=== PATIENT | male | born 1960 | race Caucasian/White ===

== ENCOUNTER 2016-05-04 02:57 | Inpatient (IN) | payer MEDICARE, OTHER ==
[2016-05-04] MEDS ORDERED: NS 0.9% 1000 ML* 1,000 ML IV ONE ×2 (03:24→04:10)
[2016-05-04] MEDS ORDERED: Ondansetron INJ* 2 MG/ML VIAL ONE (03:46)
[2016-05-04] MEDS ORDERED: Ondansetron INJ* 2 MG/ML VIAL IV ONE (03:47)
[2016-05-04 03:55] LABS: Hematocrit 46 % (42-52); Hemoglobin 15.4 g/dl (14.0-18.0); Mean Corpuscular HGB Conc 34 g/dl (31-36); Mean Corpuscular Hemoglobin 32 pg (27-31); Mean Corpuscular Volume 96 fL (80-94); Mean Platelet Volume 8 um3 (7.4-10.4); Red Blood Count 4.77 10^6/ul (4.0-5.4); Red Cell Distribution Width 14 % (10.5-15); White Blood Count 13.6 10^3/ul (3.5-10.8)
[2016-05-04 03:58] LABS: Add Diff/Slide Review? Slide Review Added; Comments Flag Yes
[2016-05-04 04:04] LABS: ALT 31 U/L (7-52); AST 39 U/L (13-39); Albumin 3.8 g/dL (3.2-5.2); Alkaline Phosphatase 87 U/L (34-104); Anion Gap 9 mmol/L (2-11); BUN/Creatinine Ratio 10.9 (8-20); Blood Urea Nitrogen 14 mg/dL (6-24); CO2 Carbon Dioxide 25 mmol/L (22-32); Chloride 101 mmol/L (101-111); EGFR African American 74.1 (>60); EGFR Non-African American 57.6 (>60); Glucose 260 mg/dL (70-100); Sodium 135 mmol/L (133-145); Total Protein 6.8 g/dL (6.4-8.9)
[2016-05-04 04:08] LABS: Troponin I 0.05 ng/mL (<0.04)
[2016-05-04] MEDS ORDERED: Piperac/Tazob 3.375 gm in NS* 3.375 GM/100 ML BAG IVPB ONE (04:11)
--- NOTE | 2016-05-04 04:18 | ED ---
Dena Retana Salem, scribed for Veronique Morales MD on 05/04/16 at 0329 . Substance Abuse/Use - HPI Summary HPI Summary: Patient is a 55 y/o male who presents to the ED s/p a heroin overdose. Pt was brought in after he was found unresponsive and with agonal breathing by the police. Cotton balls used to filter heroin was found on him. 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 Pt lives alone and is a smoker. - History Of Current Complaint Chief Complaint: EDOverdose Stated Complaint: OVERDOSE Hx Obtained From: Patient, EMS Severity Initially: Moderate Severity Currently: Moderate Character: Other - Moaning. Aggravating Factor(s): Nothing Alleviating Factor(s): Medication - Narcan. Associated Signs And Symptoms: Shortness Of Breath - Agonal breathing. - Allergies/Home Medications Allergies/Adverse Reactions: Allergies Allergy/AdvReac Type Severity Reaction Status Date / Time Codeine Allergy Unknown Vomiting Verified 12/09/15 10:12 PMH/Surg Hx/FS Hx/Imm Hx Endocrine/Hematology History: Denies: Hx Diabetes Cardiovascular History: Denies: Hx Hypertension, Hx Peripheral Vascular Disease Respiratory History: Reports: Hx Chronic Obstructive Pulmonary Disease (COPD) - ON O2 24/7, Other Respiratory Problems/Disorders - pneumothorax Denies: Hx Asthma, Hx Sleep Apnea History: Denies: Hx Renal Disease Musculoskeletal History: Reports: Hx Arthritis - BACK, Hx Back Problems Denies: Hx Osteoporosis Sensory History: Reports: Hx Contacts or Glasses Denies: Hx Cataracts, Hx Hearing Aid Opthamlomology History: Reports: Hx Contacts or Glasses Denies: Hx Cataracts Psychiatric History: Denies: Hx Depression - Surgical History Surgery Procedure, Year, and Place: R THORACOTOMY 2009. NECK SURGERY 1999. STEEL PLATE RIGHT HAND. VARICOSE VEINS R LEG. HERNIA REPAIR IN CHILDHOOD. TONSILECTOMY. APPENDECTOMY Hx Anesthesia Reactions: No Infectious Disease History: No Infectious Disease History: Reports: Hx Hepatitis - Hep C Denies: Traveled Outside the [place] in Last 30 Days - Family History Known Family History: Positive: Cardiac Disease - Brother [place], Diabetes - Brother Negative: Hypertension - Social History Lives: Alone Alcohol Use: None Substance Use Type: Reports: Heroin, Marijuana Substance Use Comment - Amount & Last Used: DAILY Hx Tobacco Use: Yes Smoking Status (MU): Current Every Day Smoker Amount Used/How Often: 1/2 PACK PER DAY Review of Systems Negative: Fever Positive: Other - Moaning. Positive: Shortness Of Breath - Agonal breathing. All Other Systems Reviewed And Are Negative: Yes Physical Exam Triage Information Reviewed: Yes Vital Signs On Initial Exam: Initial Vitals Temp Pulse Resp BP Pulse Ox 99.0 F 136 20 125/87 91 05/04/16 02:59 05/04/16 02:59 05/04/16 02:59 05/04/16 02:59 05/04/16 02:59 Vital Signs Reviewed: Yes Appearance: Positive: No Pain Distress Skin: Positive: Warm, Skin Color Reflects Adequate Perfusion, Dry Head/Face: Positive: Other - 1cm abrasion on forehead. Eyes: Positive: Other: - Pinpoint puplis. ENT: Positive: Pharynx normal, TMs normal Neck: Positive: Supple, Nontender Respiratory/Lung Sounds: Positive: Clear to Auscultation, Breath Sounds Present. Negative: Rales, Rhonchi, Wheezes Cardiovascular: Positive: Tachycardia. Negative: Murmur, Rub Abdomen Description: Positive: Nontender, Soft. Negative: Distended, Guarding Bowel Sounds: Positive: Present Musculoskeletal: Positive: Strength/ROM Intact. Negative: Edema Left, Edema Right Neurological: Positive: Sensory/Motor Intact, Alert, Oriented to Person Place, Time, CN Intact II-III Psychiatric: Positive: Affect/Mood Appropriate Diagnostics - Vital Signs Vital Signs Temp Pulse Resp BP Pulse Ox 05/04/16 02:59 99.0 F 136 20 125/87 91 - Laboratory Lab Results: Lab Results 05/04/16 05/04/16 05/04/16 Range/Units 03:30 03:30 03:30 WBC 13.6 H (3.5-10.8) 10^3/ul RBC 4.77 (4.0-5.4) 10^6/ul Hgb 15.4 (14.0-18.0) g/dl Hct 46 (42-52) % MCV 96 H (80-94) fL MCH 32 H (27-31) pg MCHC 34 (31-36) g/dl RDW 14 (10.5-15) % Plt Count 202 (150-450) 10^3/ul MPV 8 (7.4-10.4) um3 Neut % (Auto) 92.9 H (38-83) % Lymph % (Auto) 3.7 L (25-47) % [place] % (Auto) 1.1 (1-9) % Eos % (Auto) 2.2 (0-6) % Baso % (Auto) 0.1 (0-2) % Absolute Neuts (auto) 12.6 H (1.5-7.7) 10^3/ul Absolute Lymphs (auto) 0.5 L (1.0-4.8) 10^3/ul Absolute Monos (auto) 0.2 (0-0.8) 10^3/ul Absolute Eos (auto) 0.3 (0-0.6) 10^3/ul Absolute Basos (auto) 0 (0-0.2) 10^3/ul Absolute Nucleated RBC 0.01 10^3/ul Nucleated RBC % 0 INR (Anticoag Therapy) (0.89-1.11) Sodium 135 (133-145) mmol/L Potassium 4.0 (3.5-5.0) mmol/L Chloride 101 (101-111) mmol/L Carbon Dioxide 25 (22-32) mmol/L Anion Gap 9 (2-11) mmol/L BUN 14 (6-24) mg/dL Creatinine 1.29 H (0.67-1.17) mg/dL Est GFR ( Amer) 74.1 (>60) Est GFR (Non-Af Amer) 57.6 (>60) BUN/Creatinine Ratio 10.9 (8-20) Glucose 260 H (70-100) mg/dL Lactic Acid (0.5-2.0) mmol/L Calcium 9.0 (8.6-10.3) mg/dL Total Bilirubin 0.20 (0.2-1.0) mg/dL AST 39 (13-39) U/L ALT 31 (7-52) U/L Alkaline Phosphatase 87 (34-104) U/L Ammonia 54 H (16-53) mol/L Troponin I 0.05 H* (<0.04) ng/mL Total Protein 6.8 (6.4-8.9) g/dL Albumin 3.8 (3.2-5.2) g/dL Globulin 3.0 (2-4) g/dL Albumin/Globulin Ratio 1.3 (1-3) Salicylates Pending Acetaminophen Pending Serum Alcohol Pending 05/04/16 05/04/16 Range/Units 03:30 03:30 WBC (3.5-10.8) 10^3/ul RBC (4.0-5.4) 10^6/ul Hgb (14.0-18.0) g/dl Hct (42-52) % MCV (80-94) fL MCH (27-31) pg MCHC (31-36) g/dl RDW (10.5-15) % Plt Count (150-450) 10^3/ul MPV (7.4-10.4) um3 Neut % (Auto) (38-83) % Lymph % (Auto) (25-47) % [place] % (Auto) (1-9) % Eos % (Auto) (0-6) % Baso % (Auto) (0-2) % Absolute Neuts (auto) (1.5-7.7) 10^3/ul Absolute Lymphs (auto) (1.0-4.8) 10^3/ul Absolute Monos (auto) (0-0.8) 10^3/ul Absolute Eos (auto) (0-0.6) 10^3/ul Absolute Basos (auto) (0-0.2) 10^3/ul Absolute Nucleated RBC 10^3/ul Nucleated RBC % INR (Anticoag Therapy) 0.98 (0.89-1.11) Sodium (133-145) mmol/L Potassium (3.5-5.0) mmol/L Chloride (101-111) mmol/L Carbon Dioxide (22-32) mmol/L Anion Gap (2-11) mmol/L BUN (6-24) mg/dL Creatinine (0.67-1.17) mg/dL Est GFR ( Amer) (>60) Est GFR (Non-Af Amer) (>60) BUN/Creatinine Ratio (8-20) Glucose (70-100) mg/dL Lactic Acid 4.4 H* (0.5-2.0) mmol/L Calcium (8.6-10.3) mg/dL Total Bilirubin (0.2-1.0) mg/dL AST (13-39) U/L ALT (7-52) U/L Alkaline Phosphatase (34-104) U/L Ammonia (16-53) mol/L Troponin I (<0.04) ng/mL Total Protein (6.4-8.9) g/dL Albumin (3.2-5.2) g/dL Globulin (2-4) g/dL Albumin/Globulin Ratio (1-3) Salicylates Acetaminophen Serum Alcohol Result Diagrams: 05/04/16 03:30 05/04/16 03:30 Lab Statement: Any lab studies that have been ordered have been reviewed, and results considered in the medical decision making process. - Radiology CXR Radiology Interpretation Completed By: ED Physician - COPD. Chronic lung changes bilaterally. No clear cut infiltrate. - CT BRAIN CT Interpretation Completed By: Radiologist - No acute intracranial hemorrhage mass effect or midline shift. Mild nonspecfic periventricular predominant low density throughout the deep white matter is most likely due to mild small vessel ischemic white matter disease. Calcified areteriosclerosis of the right cavernous carotids noted. Chronic right frontal lobe white matter and cortical small infract and encephalomalacia and chronic bilateral basal ganglia lacunar infracts. If there is a clinical concern for a small acute infract then fellow up evaluation with an MRI of the brain may be needed. - EKG 0302 EKG Interpretation: Rapid A Fib @ 135 bpm. No Q waves. PRWP. EKG Comparison: Other - New A fib morphology compared to EKG on 07/17/13. Course/Dx - Course Course Of Treatment: IV drug user. Found on overdose. Remains tachycardic. Temperature of 99F. Will treat with Vanco and Zosyn. lactic is over 4, [place] to admit - Diagnoses Provider Diagnoses: Sepsis, Heroin overdose - Physician Notifications Discussed Care Of Patient With: Dr. Yap (Hospitalist). - Critical Care Time Critical Care Time: 30-74 min Discharge - Discharge Plan Condition: Stable Disposition: ADMITTED TO [facility] Referrals: No Primary Care Phys,NOPCP [Primary Care Provider] - The documentation as recorded by the Dena vilchis Salem accurately reflects the service I personally performed and the decisions made by me, Veronique Morales MD.
[2016-05-04 04:21] LABS: Acetaminophen < 15 mcg/mL; Alcohol < 10 mg/dL (<10); Salicylate < 2.50 mg/dL (<30)
[2016-05-04] MEDS ORDERED: Albuterol 2.5 MG/3 ML NEB.SOL* (0.083%) INH PRN ×2 (04:32→09:00)
[2016-05-04] MEDS ORDERED: Melatonin (NF) 3 MG TAB PO PRN (04:33)
[2016-05-04] MEDS ORDERED: PROCHLORPERAZINE INJ 5 MG/ML 2 ML VIAL IV PRN (04:33)
[2016-05-04] MEDS ORDERED: traMADol TAB* 50 MG PO PRN (04:33)
[2016-05-04] MEDS ORDERED: Ondansetron INJ* 2 MG/ML VIAL IV PRN (04:33)
[2016-05-04] MEDS ORDERED: Nicotine Inhaler* 10 MG AMP INH PRN (04:33)
[2016-05-04] MEDS ORDERED: Aspirin Low Dose CHEW TAB* 81 MG PO ONE (04:33)
--- NOTE | 2016-05-04 04:35 | HP ---
H&P (Free Text) History and Physical: PCP: none Date/Time of Evaluation: 05/05/2016 0430 CC: narcotic overdose HPI: Mr Villela is a 55YO male HX emphysema, spontaneous pneumothorax, polysubstance abuse who presents via EMS after police found him sitting in his car at a stop light in [place] unresponsive and breathing agonally. 2mg intranasal naloxone was administered w/o effect. 2mg IV naloxone was then given in the field with prompt arousal and agitation. He is not forthcoming with information, responding only to pointed questioning. He admits to snorting heroin prior to driving. He denies chest pain, SOB, palpitations, N/V, F/C/D, light-headedness, focal W/N/T, change in speech/swallow/vision, or other issues. Evaluation reveals tachycardia in the 100-130s & saO2 in the low 90s. Labs have WBCs of 13k 92% neutrophils, BUN/cre 14/1.29 (baseline 14/0.7), lactic acid of 4.4, & troponin of 0.05. ECG sinus tachycardia rate 135, no ischemia. CXR shows stigmata of COPD & bibasilar favor atelectasis vs less likely infiltrates. PMedHx hepatitis C, reportedly in remission s/p TX chronic LBP COPD spontaneous L pneumothorax Allergies Codeine Allergy (Unknown, Verified 12/09/15 10:12) Vomiting Medications Nursing to reconcile. PSurgHx R thoracotomy for bullous disease L chest tube for spontaneous pneumothorax SocHx: 1PPD cigarettes, denies alcohol, occasional heroin, occasional marijuana , HX IV drug abuse; on disability, formerly worked construction; full code status FamHx: Mother alive at age 87, uncertain of her issues. Brother passed of complication of diabetes. ROS: as above, otherwise reviewed and all were negative Constitutional: NAD, normally developed, malnourished unkempt white male vitals: Vital Signs Temp 37.2 C 05/04/16 02:59 Pulse 108 05/04/16 04:00 Resp 15 05/04/16 04:00 BP 116/76 05/04/16 04:00 Pulse Ox 93 05/04/16 04:00 Intake & Output 05/03/16 05/03/16 05/04/16 11:59 23:59 11:59 Weight 63.503 kg HEENM: atraumatic; sclera/conjunctiva: non-icteric/clear; hearing: clinically intact; oropharynx: clear, mucosa tacky Neck: soft tissue: non-tender; thyroid: normal Pulmonary: clear to auscultation bilaterally, good aeration, no accessory muscle use CV: RR/RR, normal S1S2, no carotid bruit, no jugular venous distention, 2+ B DP/ PT, no edema Abdominal: soft, non-distended, non-tender, no rebound/guarding/rigidity, normoactive bowel sounds, no hepatosplenomegaly or masses, no costovertebral angle tenderness Musculoskeletal: general: grossly intact; gait: stable Integumental: normal appearance and texture Psychiatric orientation: AA&O to PPTS affect: flat mood: calm eye contact: good content: reliable when he answers responses: evasive insight: poor Testing: Lab Results 05/04/16 05/04/16 05/04/16 Range/Units 03:30 03:30 03:30 WBC 13.6 H (3.5-10.8) 10^3/ul RBC 4.77 (4.0-5.4) 10^6/ul Hgb 15.4 (14.0-18.0) g/dl Hct 46 (42-52) % MCV 96 H (80-94) fL MCH 32 H (27-31) pg MCHC 34 (31-36) g/dl RDW 14 (10.5-15) % Plt Count 202 (150-450) 10^3/ul MPV 8 (7.4-10.4) um3 Neut % (Auto) 92.9 H (38-83) % Lymph % (Auto) 3.7 L (25-47) % [place] % (Auto) 1.1 (1-9) % Eos % (Auto) 2.2 (0-6) % Baso % (Auto) 0.1 (0-2) % Absolute Neuts (auto) 12.6 H (1.5-7.7) 10^3/ul Absolute Lymphs (auto) 0.5 L (1.0-4.8) 10^3/ul Absolute Monos (auto) 0.2 (0-0.8) 10^3/ul Absolute Eos (auto) 0.3 (0-0.6) 10^3/ul Absolute Basos (auto) 0 (0-0.2) 10^3/ul Absolute Nucleated RBC 0.01 10^3/ul Nucleated RBC % 0 INR (Anticoag Therapy) (0.89-1.11) Carbon Monoxide Screen (<3.5) % Sodium 135 (133-145) mmol/L Potassium 4.0 (3.5-5.0) mmol/L Chloride 101 (101-111) mmol/L Carbon Dioxide 25 (22-32) mmol/L Anion Gap 9 (2-11) mmol/L BUN 14 (6-24) mg/dL Creatinine 1.29 H (0.67-1.17) mg/dL Est GFR ( Amer) 74.1 (>60) Est GFR (Non-Af Amer) 57.6 (>60) BUN/Creatinine Ratio 10.9 (8-20) Glucose 260 H (70-100) mg/dL Lactic Acid (0.5-2.0) mmol/L Calcium 9.0 (8.6-10.3) mg/dL Total Bilirubin 0.20 (0.2-1.0) mg/dL AST 39 (13-39) U/L ALT 31 (7-52) U/L Alkaline Phosphatase 87 (34-104) U/L Ammonia 54 H (16-53) mol/L Troponin I 0.05 H* (<0.04) ng/mL Total Protein 6.8 (6.4-8.9) g/dL Albumin 3.8 (3.2-5.2) g/dL Globulin 3.0 (2-4) g/dL Albumin/Globulin Ratio 1.3 (1-3) TSH 5.57 (0.34-5.60) mcIU/mL Urine Color Urine Appearance Urine pH (5-9) Ur Specific [place] (1.010-1.030) Urine Protein (Negative) Urine Ketones (Negative) Urine Blood (Negative) Urine Nitrate (Negative) Urine Bilirubin (Negative) Urine Urobilinogen (Negative) Ur Leukocyte Esterase (Negative) Urine WBC (Auto) (Absent) Urine RBC (Auto) (Absent) Urine Bacteria (Absent) Urine Glucose (Negative) Salicylates < 2.50 (<30) mg/dL Urine Opiates Screen (None Detect) Acetaminophen < 15 mcg/mL Ur Barbiturates Screen (None Detect) Ur Phencyclidine Scrn (None Detect) Ur Amphetamines Screen (None Detect) U Benzodiazepines Scrn (None Detect) Urine Cocaine Screen (None Detect) U Cannabinoids Screen (None Detect) Serum Alcohol < 10 (<10) mg/dL 05/04/16 05/04/16 05/04/16 Range/Units 03:30 03:30 05:15 WBC (3.5-10.8) 10^3/ul RBC (4.0-5.4) 10^6/ul Hgb (14.0-18.0) g/dl Hct (42-52) % MCV (80-94) fL MCH (27-31) pg MCHC (31-36) g/dl RDW (10.5-15) % Plt Count (150-450) 10^3/ul MPV (7.4-10.4) um3 Neut % (Auto) (38-83) % Lymph % (Auto) (25-47) % [place] % (Auto) (1-9) % Eos % (Auto) (0-6) % Baso % (Auto) (0-2) % Absolute Neuts (auto) (1.5-7.7) 10^3/ul Absolute Lymphs (auto) (1.0-4.8) 10^3/ul Absolute Monos (auto) (0-0.8) 10^3/ul Absolute Eos (auto) (0-0.6) 10^3/ul Absolute Basos (auto) (0-0.2) 10^3/ul Absolute Nucleated RBC 10^3/ul Nucleated RBC % INR (Anticoag Therapy) 0.98 (0.89-1.11) Carbon Monoxide Screen (<3.5) % Sodium (133-145) mmol/L Potassium (3.5-5.0) mmol/L Chloride (101-111) mmol/L Carbon Dioxide (22-32) mmol/L Anion Gap (2-11) mmol/L BUN (6-24) mg/dL Creatinine (0.67-1.17) mg/dL Est GFR ( Amer) (>60) Est GFR (Non-Af Amer) (>60) BUN/Creatinine Ratio (8-20) Glucose (70-100) mg/dL Lactic Acid 4.4 H* (0.5-2.0) mmol/L Calcium (8.6-10.3) mg/dL Total Bilirubin (0.2-1.0) mg/dL AST (13-39) U/L ALT (7-52) U/L Alkaline Phosphatase (34-104) U/L Ammonia (16-53) mol/L Troponin I (<0.04) ng/mL Total Protein (6.4-8.9) g/dL Albumin (3.2-5.2) g/dL Globulin (2-4) g/dL Albumin/Globulin Ratio (1-3) TSH (0.34-5.60) mcIU/mL Urine Color Yellow Urine Appearance Cloudy Urine pH 6.0 (5-9) Ur Specific [place] 1.007 L (1.010-1.030) Urine Protein 2+(100 mg/dl) H (Negative) Urine Ketones Negative (Negative) Urine Blood 1+ H (Negative) Urine Nitrate Negative (Negative) Urine Bilirubin Negative (Negative) Urine Urobilinogen Negative (Negative) Ur Leukocyte Esterase Negative (Negative) Urine WBC (Auto) 1+(6-10/hpf) H (Absent) Urine RBC (Auto) 2+(6-10/hpf) H (Absent) Urine Bacteria Absent (Absent) Urine Glucose 3+(>=500 mg/dl) H (Negative) Salicylates (<30) mg/dL Urine Opiates Screen (None Detect) Acetaminophen mcg/mL Ur Barbiturates Screen (None Detect) Ur Phencyclidine Scrn (None Detect) Ur Amphetamines Screen (None Detect) U Benzodiazepines Scrn (None Detect) Urine Cocaine Screen (None Detect) U Cannabinoids Screen (None Detect) Serum Alcohol (<10) mg/dL 05/04/16 05/04/16 Range/Units 05:15 05:15 WBC (3.5-10.8) 10^3/ul RBC (4.0-5.4) 10^6/ul Hgb (14.0-18.0) g/dl Hct (42-52) % MCV (80-94) fL MCH (27-31) pg MCHC (31-36) g/dl RDW (10.5-15) % Plt Count (150-450) 10^3/ul MPV (7.4-10.4) um3 Neut % (Auto) (38-83) % Lymph % (Auto) (25-47) % [place] % (Auto) (1-9) % Eos % (Auto) (0-6) % Baso % (Auto) (0-2) % Absolute Neuts (auto) (1.5-7.7) 10^3/ul Absolute Lymphs (auto) (1.0-4.8) 10^3/ul Absolute Monos (auto) (0-0.8) 10^3/ul Absolute Eos (auto) (0-0.6) 10^3/ul Absolute Basos (auto) (0-0.2) 10^3/ul Absolute Nucleated RBC 10^3/ul Nucleated RBC % INR (Anticoag Therapy) (0.89-1.11) Carbon Monoxide Screen 8.8 H (<3.5) % Sodium (133-145) mmol/L Potassium (3.5-5.0) mmol/L Chloride (101-111) mmol/L Carbon Dioxide (22-32) mmol/L Anion Gap (2-11) mmol/L BUN (6-24) mg/dL Creatinine (0.67-1.17) mg/dL Est GFR ( Amer) (>60) Est GFR (Non-Af Amer) (>60) BUN/Creatinine Ratio (8-20) Glucose (70-100) mg/dL Lactic Acid (0.5-2.0) mmol/L Calcium (8.6-10.3) mg/dL Total Bilirubin (0.2-1.0) mg/dL AST (13-39) U/L ALT (7-52) U/L Alkaline Phosphatase (34-104) U/L Ammonia (16-53) mol/L Troponin I (<0.04) ng/mL Total Protein (6.4-8.9) g/dL Albumin (3.2-5.2) g/dL Globulin (2-4) g/dL Albumin/Globulin Ratio (1-3) TSH (0.34-5.60) mcIU/mL Urine Color Urine Appearance Urine pH (5-9) Ur Specific [place] (1.010-1.030) Urine Protein (Negative) Urine Ketones (Negative) Urine Blood (Negative) Urine Nitrate (Negative) Urine Bilirubin (Negative) Urine Urobilinogen (Negative) Ur Leukocyte Esterase (Negative) Urine WBC (Auto) (Absent) Urine RBC (Auto) (Absent) Urine Bacteria (Absent) Urine Glucose (Negative) Salicylates (<30) mg/dL Urine Opiates Screen Presumptive positive H (None Detect) Acetaminophen mcg/mL Ur Barbiturates Screen None detected (None Detect) Ur Phencyclidine Scrn None detected (None Detect) Ur Amphetamines Screen None detected (None Detect) U Benzodiazepines Scrn None detected (None Detect) Urine Cocaine Screen Presumptive positive H (None Detect) U Cannabinoids Screen Presumptive positive H (None Detect) Serum Alcohol (<10) mg/dL ECG, personally reviewed: sinus tachycardia rate 135, no ischemia CXR, personally reviewed: stigmata of COPD & bibasilar favor atelectasis vs less likely infiltrates, official read pending CT brain WO, personally reviewed: no acute finding, official read pending Impression: 55M presenting with heroin OD in the process of arresting, elevated troponin, OPHELIA, & SIRS; ? aspiration DIAGNOSIS & PLAN Primary heroin OD : telemetry : PRN naloxone : social secretary consult OPHELIA : suspect 2nd hypoperfusion : IVFs, trend elevated troponin : suspect demand ischemia : telemetry : supplemental oxygen : aspirin : trend SIRS : suspect 2nd near arrest from heroin OD : piperacillin/tazobactam & vancomycin given in ED : hold further ABX unless source identified or infection becomes likely : IVFs, close monitoring : blood CX & check UA Secondary polysubstance abuse : smoking cessation recommended, no motivation : social secretary COPD/emphysema, not in exacerbation : albuterol nebs : mometasone/formoterol : tiotropium : incentive spirometry Admission Rational: observation for heroin OD, elevated troponin, OPHELIA, & SIRS DVTp: heparin SQ Code Status: full
[2016-05-04] MEDS ORDERED: Albuterol/Ipratropium NEB.SOL* Albuterol 2.5 MG/Ipratropium 0.5 MG 3 ML INH ONE (04:38)
[2016-05-04] MEDS ORDERED: Naloxone* 0.4 MG/ML 1 ML VIAL IV PRN (04:41)
[2016-05-04] MEDS ORDERED: Vancomycin(*) 1,000 MG VIAL IVPB SCH (05:00)
[2016-05-04] MEDS ORDERED: Vancomycin(*) 1,000 MG - ED ONCE IVPB ONE ×2 (05:00)
[2016-05-04 05:09] LABS: TSH (Thyroid Stimulating Horm) 5.57 mcIU/mL (0.34-5.60)
[2016-05-04 05:45] LABS: Urine Bacteria Absent (Absent); Urine Bilirubin Negative (Negative); Urine Glucose 3+(>=500 mg/dL) (Negative); Urine Nitrite Negative (Negative)
[2016-05-04 05:53] LABS: Benzodiazepine Urine Screen None Detected (None Detect)
[2016-05-04] MEDS ORDERED: Omeprazole CAP* 20 MG PO SCH (06:00)
[2016-05-04 06:40] LABS: Hematocrit 43 % (42-52); Hemoglobin 14.3 g/dl (14.0-18.0); Mean Corpuscular HGB Conc 34 g/dl (31-36); Mean Corpuscular Hemoglobin 32 pg (27-31); Mean Corpuscular Volume 96 fL (80-94); Mean Platelet Volume 8 um3 (7.4-10.4); Red Blood Count 4.45 10^6/ul (4.0-5.4); Red Cell Distribution Width 14 % (10.5-15); White Blood Count 11.2 10^3/ul (3.5-10.8)
[2016-05-04 06:45] LABS: BUN/Creatinine Ratio 13.3 (8-20); Calcium 7.1 mg/dL (8.6-10.3); EGFR African American 112.3 (>60); EGFR Non-African American 87.3 (>60); Potassium 3.9 mmol/L (3.5-5.0)
[2016-05-04] MEDS ORDERED: Albuterol 2.5 MG/3 ML NEB.SOL* (0.083%) INH SCH (07:00)
[2016-05-04 07:22] LABS: Troponin I 0.14 ng/mL (<0.04)
--- NOTE | 2016-05-04 07:55 | RAD ---
INDICATION: Altered mental status. COMPARISON: Comparison is made with prior chest x-ray studies from July 28, 2013 and November 13, 2015. TECHNIQUE: A portable view of the chest was obtained. FINDINGS: Cardiac and mediastinal contours appear to be within normal limits. There is focal pleural reaction at the left lung apex which is unchanged from the prior exam. There was an air-fluid level in this region on the study from 2013 favoring that this represents scarring. The lungs are underinflated. There are infiltrates at both lung bases. No pleural effusion is seen. IMPRESSION: SMALL BIBASILAR FILTRATES.
--- NOTE | 2016-05-04 08:02 | RAD ---
INDICATION: Altered mental status. COMPARISON: Comparison is made with a prior CT of the brain from December 09, 2015. TECHNIQUE: Contiguous axial sections of the brain were obtained from the skull base to the vertex without contrast. FINDINGS: The ventricles, cisterns and sulci are within normal limits. There is a small focal area of encephalomalacia present in the subcortical white matter in the right frontal lobe which is unchanged most consistent with an old infarct. There are bilateral focal areas of decreased attenuation present within the basal ganglia most consistent with old lacunar infarcts. No other focal abnormality or mass effect is seen. There is no evidence for hemorrhage. No significant focal osseous abnormality is seen. The visualized portion of the paranasal sinuses and mastoid air cells appear clear. IMPRESSION: 1. NO EVIDENCE FOR GROSS ACUTE INFARCT, MASS EFFECT OR HEMORRHAGE. IF THERE IS CLINICAL CONCERN FOR AN ACUTE INFARCT CONSIDER A FOLLOW-UP MRI OF THE BRAIN WITHOUT CONTRAST. 2. 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
[2016-05-04] MEDS: Mometasone/Formoter 200/5 MDI INH SCH (08:35)
[2016-05-04] MEDS: Acetaminophen TAB* 325 MG PO PRN ×2 (08:47→17:57)
[2016-05-04] MEDS: NS 0.9% 1000 ML* 1,000 ML IV SCH ×2 (08:47→16:45)
[2016-05-04] MEDS ORDERED: Tiotropium CAP.INH* CAP.INH/18 MCG (USE ORDER SET !) INH SCH (09:00)
[2016-05-04] MEDS ORDERED: Docusate CAP* 100 MG PO SCH (09:00)
[2016-05-04] MEDS ORDERED: Spiriva Inhaler DEVICE* 1 EACH DEVICE INH ONE (09:00)
--- NOTE | 2016-05-04 14:51 | PN ---
Subjective Date of Service: 05/04/16 Interval History: Pt is feeling well. He has no complaints at this time. He denies any pain. He states he uses heroin intermittently- he spoke with social work this AM. Objective Active Medications: Acetaminophen (Tylenol Tab*) 650 mg PO Q6H PRN PRN Reason: FEVER/PAIN Last Admin: 05/04/16 08:47 Dose: 650 mg Albuterol (Ventolin 2.5 Mg/3 Ml Neb.Natalie*) 2.5 mg INH Q2H PRN PRN Reason: SOB/WHEEZING Albuterol (Ventolin 2.5 Mg/3 Ml Neb.Natalie*) 2.5 mg INH [id number] AWAKE PRN PRN Reason: TDP Heparin Sodium (Porcine) (Heparin Vial(*)) 5,000 units SUBCUT Q8HR IRINA Sodium Chloride (Ns 0.9% 1000 Ml*) 1,000 mls @ 125 mls/hr IV PER RATE PENDING SALE TO [facility] Last Admin: 05/04/16 08:47 Dose: 125 mls/hr Mometasone Furoate/Formoterol Fumar (Dulera 200/5 Mdi*) 2 puff INH BID PENDING SALE TO [facility] Last Admin: 05/04/16 08:35 Dose: 2 puff Nicotine (Nicotine Inhaler*) 10 mg INH Q2H PRN PRN Reason: CRAVING Ondansetron HCl (Zofran Inj*) 4 mg IV Q6H PRN PRN Reason: NAUSEA Prochlorperazine Edisylate (Compazine Inj*) 10 mg IV Q6H PRN PRN Reason: NAUSEA Tramadol HCl (Ultram*) 50 mg PO Q6H PRN PRN Reason: PAIN Vital Signs 05/04/16 05/04/16 05/04/16 05:00 05:30 06:00 Temperature Pulse Rate 108 95 Respiratory Rate Blood Pressure 123/90 131/90 140/92 (mmHg) O2 Sat by Pulse 92 94 Oximetry 05/04/16 05/04/16 05/04/16 06:30 08:05 08:23 Temperature 98.0 F Pulse Rate 110 82 Respiratory 18 16 Rate Blood Pressure 120/84 141/90 (mmHg) O2 Sat by Pulse 94 95 Oximetry 05/04/16 11:21 Temperature 98.4 F Pulse Rate 89 Respiratory 16 Rate Blood Pressure 112/75 (mmHg) O2 Sat by Pulse 96 Oximetry Oxygen Devices in Use Now: None Appearance: Middle aged male sitting up in bed, NAD Eyes: No Scleral Icterus Ears/Nose/Mouth/Throat: Mucous Membranes Moist Respiratory: Symmetrical Chest Expansion and Respiratory Effort, Clear to Auscultation Cardiovascular: NL Sounds; No Murmurs; No JVD, RRR, No Edema Abdominal: NL Sounds; No Tenderness; No Distention Extremities: No Clubbing, Cyanosis Skin: No Rash or Ulcers, No Nodules or Sclerosis, - - numerous tattoos all over the arms/torso Neurological: Alert and Oriented x 3, - - mild R facial droop (corner of the mouth) no other focal neurologic findings Result Diagrams: 05/04/16 06:10 05/04/16 06:10 Additional Lab and Data: Lab Results 05/04/16 05/04/16 05/04/16 Range/Units 03:30 03:30 03:30 WBC 13.6 H (3.5-10.8) 10^3/ul RBC 4.77 (4.0-5.4) 10^6/ul Hgb 15.4 (14.0-18.0) g/dl Hct 46 (42-52) % MCV 96 H (80-94) fL MCH 32 H (27-31) pg MCHC 34 (31-36) g/dl RDW 14 (10.5-15) % Plt Count 202 (150-450) 10^3/ul MPV 8 (7.4-10.4) um3 Neut % (Auto) 92.9 H (38-83) % Lymph % (Auto) 3.7 L (25-47) % [place] % (Auto) 1.1 (1-9) % Eos % (Auto) 2.2 (0-6) % Baso % (Auto) 0.1 (0-2) % Absolute Neuts (auto) 12.6 H (1.5-7.7) 10^3/ul Absolute Lymphs (auto) 0.5 L (1.0-4.8) 10^3/ul Absolute Monos (auto) 0.2 (0-0.8) 10^3/ul Absolute Eos (auto) 0.3 (0-0.6) 10^3/ul Absolute Basos (auto) 0 (0-0.2) 10^3/ul Absolute Nucleated RBC 0.01 10^3/ul Nucleated RBC % 0 INR (Anticoag Therapy) (0.89-1.11) Sodium 135 (133-145) mmol/L Potassium 4.0 (3.5-5.0) mmol/L Chloride 101 (101-111) mmol/L Carbon Dioxide 25 (22-32) mmol/L Anion Gap 9 (2-11) mmol/L BUN 14 (6-24) mg/dL Creatinine 1.29 H (0.67-1.17) mg/dL Est GFR ( Amer) 74.1 (>60) Est GFR (Non-Af Amer) 57.6 (>60) BUN/Creatinine Ratio 10.9 (8-20) Glucose 260 H (70-100) mg/dL Lactic Acid (0.5-2.0) mmol/L Calcium 9.0 (8.6-10.3) mg/dL Total Bilirubin 0.20 (0.2-1.0) mg/dL AST 39 (13-39) U/L ALT 31 (7-52) U/L Alkaline Phosphatase 87 (34-104) U/L Ammonia 54 H (16-53) mol/L Troponin I 0.05 H* (<0.04) ng/mL Total Protein 6.8 (6.4-8.9) g/dL Albumin 3.8 (3.2-5.2) g/dL Globulin 3.0 (2-4) g/dL Albumin/Globulin Ratio 1.3 (1-3) Salicylates Pending Acetaminophen Pending Serum Alcohol Pending 05/04/16 05/04/16 Range/Units 03:30 03:30 WBC (3.5-10.8) 10^3/ul RBC (4.0-5.4) 10^6/ul Hgb (14.0-18.0) g/dl Hct (42-52) % MCV (80-94) fL MCH (27-31) pg MCHC (31-36) g/dl RDW (10.5-15) % Plt Count (150-450) 10^3/ul MPV (7.4-10.4) um3 Neut % (Auto) (38-83) % Lymph % (Auto) (25-47) % [place] % (Auto) (1-9) % Eos % (Auto) (0-6) % Baso % (Auto) (0-2) % Absolute Neuts (auto) (1.5-7.7) 10^3/ul Absolute Lymphs (auto) (1.0-4.8) 10^3/ul Absolute Monos (auto) (0-0.8) 10^3/ul Absolute Eos (auto) (0-0.6) 10^3/ul Absolute Basos (auto) (0-0.2) 10^3/ul Absolute Nucleated RBC 10^3/ul Nucleated RBC % INR (Anticoag Therapy) 0.98 (0.89-1.11) Sodium (133-145) mmol/L Potassium (3.5-5.0) mmol/L Chloride (101-111) mmol/L Carbon Dioxide (22-32) mmol/L Anion Gap (2-11) mmol/L BUN (6-24) mg/dL Creatinine (0.67-1.17) mg/dL Est GFR ( Amer) (>60) Est GFR (Non-Af Amer) (>60) BUN/Creatinine Ratio (8-20) Glucose (70-100) mg/dL Lactic Acid 4.4 H* (0.5-2.0) mmol/L Calcium (8.6-10.3) mg/dL Total Bilirubin (0.2-1.0) mg/dL AST (13-39) U/L ALT (7-52) U/L Alkaline Phosphatase (34-104) U/L Ammonia (16-53) mol/L Troponin I (<0.04) ng/mL Total Protein (6.4-8.9) g/dL Albumin (3.2-5.2) g/dL Globulin (2-4) g/dL Albumin/Globulin Ratio (1-3) Salicylates Acetaminophen Serum Alcohol Microbiology and Other Data: Microbiology 05/04/16 05:15 Nasal Screen MRSA (PCR)(FRANK) - Final Nasal Mrsa Negative Assess/Plan/Problems-Billing Mr Villela is a 55 yo M who has a 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 - Patient Problems (1) Accidental heroin overdose Current Visit: Yes Status: Acute Code(s): T40.1X1A - POISONING BY HEROIN, ACCIDENTAL (UNINTENTIONAL), INIT ENCNTR SNOMED Code(s): 865987020 Comment: The patient responded to narcan and his mental status is baseline. (2) Polysubstance abuse Current Visit: Yes Status: Acute Code(s): F19.10 - OTHER PSYCHOACTIVE SUBSTANCE ABUSE, UNCOMPLICATED SNOMED Code(s): 046042745 Comment: The patient has met with social work and been given information on community resources. (3) Elevated troponin Current Visit: Yes Status: Acute Code(s): R74.8 - ABNORMAL LEVELS OF OTHER SERUM ENZYMES SNOMED Code(s): 906753237 Comment: ? demand ischemia vs elevated trop secondary to cocaine (drug screen positive). Will get follow up troponin now and echo. (4) COPD (chronic obstructive pulmonary disease) Current Visit: Yes Status: Acute Code(s): J44.9 - CHRONIC OBSTRUCTIVE PULMONARY DISEASE, UNSPECIFIED SNOMED Code(s): 35204018 Comment: No signs of exacerbation at this time. (5) DVT prophylaxis Current Visit: Yes Status: Acute Code(s): HAJ9596 - SNOMED Code(s): 818820011 Comment: SQ heparin (6) Full code status Current Visit: Yes Status: Acute Code(s): Z78.9 - OTHER SPECIFIED HEALTH STATUS SNOMED Code(s): 704822858
--- NOTE | 2016-05-04 16:16 | ECHO ---
Patient: ARI MENSAH [facility] Rec#: [id number] : 1960 Date: 05/04/2016 Age: 55y Height: 190 cm / 74.8 in Weight: 70 kg / 154.3 lbs Sex: M BSA: 1.96 Room#: [facility] Admit Date#: 05/04/2016 Type: Inpatient Referring: Coir Gaffney DO Reading: Wyatt Mckinley MD Personal Property Appraiser: Jordy Odonnell RDCS Transthoracic Echocardiogram Indication: Elevated troponon BP: 112/75 HR: 91 Rhythm: NSR Findings Technical Comments: The study quality is fair. Completed 1600 The study is technically limited due to patient body habitus. The study is technically limited due to the patient's history of COPD. Left Ventricle: The left ventricular chamber size is normal. Mild concentric left ventricular hypertrophy is observed. Global left ventricular wall motion and contractility are within normal limits. There is normal left ventricular systolic function. The estimated ejection fraction is 55-60%. Abnormal left ventricular diastolic filling is observed, consistent with impaired relaxation. Left Atrium: The left atrial chamber size is normal. Right Ventricle: The right ventricular cavity size is normal. The right ventricular global systolic function is normal. Right Atrium: The right atrial cavity size is normal. Aortic Valve: The aortic valve structure is not well visualized. There is no evidence of aortic regurgitation. There is no evidence of aortic stenosis. Mitral Valve: The mitral valve leaflets appear normal. There is no evidence of mitral regurgitation. Tricuspid Valve: There is a physiologic tricuspid regurgitation. Unable to estimate the right ventricular systolic pressure. Pulmonic Valve: The pulmonic valve structure is not well visualized. There is no evidence of pulmonic regurgitation. There is no pulmonic stenosis. Pericardium: There is no pericardial effusion. Aorta: There is no dilatation of the ascending aorta. The aortic arch is not well visualized. There is mild dilatation of the aortic root. Pulmonary Artery: The main pulmonary artery is not well visualized. Venous: The inferior vena cava is dilated. There is an approximate 50% respiratory change in the inferior vena cava dimension. Conclusions There is normal left ventricular systolic function. The estimated ejection fraction is 55-60%. Global left ventricular wall motion and contractility are within normal limits. The left ventricular chamber size is normal. Mild concentric left ventricular hypertrophy is observed. Abnormal left ventricular diastolic filling is observed, consistent with impaired relaxation. Normal cardiac chamber sizes. Functionally benign heart valves. There is mild dilatation of the aortic root. There is no prior echocardiogram available to compare with at this time. Measurements Name Value Normal Range RVIDd (AP) 2D 2.5 cm (0.9 - 2.6) RVDdMajor (2D) 2.7 cm (2.2 - 4.4) RAd ISD 4CH 4.4 cm (3.4 - 4.9) RA (A4C)W 3.7 cm (2.9 - 4.6) IVSd (2D) 1.2 cm (0.6 - 1) LVPWd (2D) 0.8 cm (0.6 - 1) LVIDd (2D) 3.7 cm (3.6 - 5.4) LVIDs (2D) 2.7 cm - LV FS (2D) 27 % (25 - 45) Aortic Annulus 1.8 cm (1.4 - 2.6) Ao root diameter (2D) 3.9 cm (2.1 - 3.5) Ascending Ao 3.2 cm (2.1 - 3.4) LA dimension (AP) 2D 2.8 cm (2.3 - 3.8) LAd ISD 4CH 4.4 cm (2.9 - 5.3) LA ISD 4CH W 3.4 cm (2.5 - 4.5) Name Value Normal Range LA ESV SP 4CH (A/L) 28 ml - LA ESV SP 2CH (A/L) 33 ml - LA ESV BP (A/L) 30 ml - LA ESV BP (A/L) index 15.49 ml/m2 - LA ESV SP 4CH (MOD) 25 ml - LA ESV SP 2CH (MOD) 30 ml - Name Value Normal Range MV E-wave Vmax 0.37 m/sec - MV deceleration time 98 msec - MV A-wave Vmax 0.69 m/sec - MV E:A ratio 0.53 ratio - LV septal e' Vmax 0.09 m/sec - LV lateral e' Vmax 0.09 m/sec - LV E:e' septal ratio 4.1 ratio - LV E:e' lateral ratio 4.1 ratio - Name Value Normal Range AV Vmax 0.8 m/sec - AV VTI 11 cm - AV peak gradient 2.6 mmHg - AV mean gradient 1.7 mmHg - LVOT diameter 2.4 cm - LVOT Vmax 0.7 m/sec - LVOT VTI 11.3 cm - LVOT peak gradient 1.9 mmHg - LVOT mean gradient 1 mmHg - SAMANTHA (continuity Vmax) 3.9 cm2 - SAMANTHA (continuity VTI) 4.8 cm2 - Name Value Normal Range IVC diameter 2.9 cm - Name Value Normal Range PV Vmax 0.6 m/sec -
[2016-05-05] MEDS: NS 0.9% 1000 ML* 1,000 ML IV SCH ×2 (02:13→10:41)
[2016-05-05] MEDS: Mometasone/Formoter 200/5 MDI INH SCH ×3 (02:18→21:22)
[2016-05-05] MEDS: Heparin VIAL(*) 5000 UNITS/ML VIAL (FIVE THOUSAND) SUBCUT SCH ×3 (05:59→22:06)
[2016-05-05] MEDS: Acetaminophen TAB* 325 MG PO PRN ×2 (12:39→20:58)
--- NOTE | 2016-05-05 13:29 | PN ---
Subjective Date of Service: 05/05/16 Interval History: Pt is feeling well. He would like to go home. He now notices the asymmetry in his face. He thought the L side looked droopy. He denies any chest pain or SOB. No other focal neurologic symptoms. Objective Active Medications: Acetaminophen (Tylenol Tab*) 650 mg PO Q6H PRN PRN Reason: FEVER/PAIN Last Admin: 05/05/16 12:39 Dose: 650 mg Albuterol (Ventolin 2.5 Mg/3 Ml Neb.Natalie*) 2.5 mg INH Q2H PRN PRN Reason: SOB/WHEEZING Albuterol (Ventolin 2.5 Mg/3 Ml Neb.Natalie*) 2.5 mg INH RT.[id number] AWAKE PRN PRN Reason: TDP Heparin Sodium (Porcine) (Heparin Vial(*)) 5,000 units SUBCUT Q8HR [facility] Last Admin: 05/05/16 05:59 Dose: 5,000 units Mometasone Furoate/Formoterol Fumar (Dulera 200/5 Mdi*) 2 puff INH BID [facility] Last Admin: 05/05/16 10:23 Dose: 2 puff Nicotine (Nicotine Inhaler*) 10 mg INH Q2H PRN PRN Reason: CRAVING Ondansetron HCl (Zofran Inj*) 4 mg IV Q6H PRN PRN Reason: NAUSEA Prochlorperazine Edisylate (Compazine Inj*) 10 mg IV Q6H PRN PRN Reason: NAUSEA Tramadol HCl (Ultram*) 50 mg PO Q6H PRN PRN Reason: PAIN Vital Signs 05/04/16 05/04/16 05/04/16 15:39 19:49 23:26 Temperature 98.3 F 98.1 F 97.9 F Pulse Rate 87 85 73 Respiratory 20 20 Rate Blood Pressure 128/92 135/91 138/100 (mmHg) O2 Sat by Pulse 94 96 99 Oximetry 05/05/16 05/05/16 05/05/16 03:09 07:18 10:26 Temperature 97.9 F 97.8 F Pulse Rate 74 71 78 Respiratory 20 16 16 Rate Blood Pressure 158/102 154/108 (mmHg) O2 Sat by Pulse 98 97 95 Oximetry 05/05/16 11:04 Temperature 98.3 F Pulse Rate 72 Respiratory 16 Rate Blood Pressure 165/111 (mmHg) O2 Sat by Pulse 99 Oximetry Oxygen Devices in Use Now: None Appearance: Middle aged male sitting up in bed, NAD Eyes: No Scleral Icterus Ears/Nose/Mouth/Throat: Mucous Membranes Moist Respiratory: Symmetrical Chest Expansion and Respiratory Effort, Clear to Auscultation Cardiovascular: NL Sounds; No Murmurs; No JVD, RRR, No Edema Abdominal: NL Sounds; No Tenderness; No Distention Extremities: No Clubbing, Cyanosis Skin: No Rash or Ulcers, No Nodules or Sclerosis Neurological: Alert and Oriented x 3, - - R facial droop Result Diagrams: 05/04/16 06:10 05/04/16 06:10 Additional Lab and Data: Lab Results 05/04/16 05/04/16 05/04/16 Range/Units 03:30 03:30 03:30 WBC 13.6 H (3.5-10.8) 10^3/ul RBC 4.77 (4.0-5.4) 10^6/ul Hgb 15.4 (14.0-18.0) g/dl Hct 46 (42-52) % MCV 96 H (80-94) fL MCH 32 H (27-31) pg MCHC 34 (31-36) g/dl RDW 14 (10.5-15) % Plt Count 202 (150-450) 10^3/ul MPV 8 (7.4-10.4) um3 Neut % (Auto) 92.9 H (38-83) % Lymph % (Auto) 3.7 L (25-47) % [place] % (Auto) 1.1 (1-9) % Eos % (Auto) 2.2 (0-6) % Baso % (Auto) 0.1 (0-2) % Absolute Neuts (auto) 12.6 H (1.5-7.7) 10^3/ul Absolute Lymphs (auto) 0.5 L (1.0-4.8) 10^3/ul Absolute Monos (auto) 0.2 (0-0.8) 10^3/ul Absolute Eos (auto) 0.3 (0-0.6) 10^3/ul Absolute Basos (auto) 0 (0-0.2) 10^3/ul Absolute Nucleated RBC 0.01 10^3/ul Nucleated RBC % 0 INR (Anticoag Therapy) (0.89-1.11) Sodium 135 (133-145) mmol/L Potassium 4.0 (3.5-5.0) mmol/L Chloride 101 (101-111) mmol/L Carbon Dioxide 25 (22-32) mmol/L Anion Gap 9 (2-11) mmol/L BUN 14 (6-24) mg/dL Creatinine 1.29 H (0.67-1.17) mg/dL Est GFR ( Amer) 74.1 (>60) Est GFR (Non-Af Amer) 57.6 (>60) BUN/Creatinine Ratio 10.9 (8-20) Glucose 260 H (70-100) mg/dL Lactic Acid (0.5-2.0) mmol/L Calcium 9.0 (8.6-10.3) mg/dL Total Bilirubin 0.20 (0.2-1.0) mg/dL AST 39 (13-39) U/L ALT 31 (7-52) U/L Alkaline Phosphatase 87 (34-104) U/L Ammonia 54 H (16-53) mol/L Troponin I 0.05 H* (<0.04) ng/mL Total Protein 6.8 (6.4-8.9) g/dL Albumin 3.8 (3.2-5.2) g/dL Globulin 3.0 (2-4) g/dL Albumin/Globulin Ratio 1.3 (1-3) Salicylates Pending Acetaminophen Pending Serum Alcohol Pending 05/04/16 05/04/16 Range/Units 03:30 03:30 WBC (3.5-10.8) 10^3/ul RBC (4.0-5.4) 10^6/ul Hgb (14.0-18.0) g/dl Hct (42-52) % MCV (80-94) fL MCH (27-31) pg MCHC (31-36) g/dl RDW (10.5-15) % Plt Count (150-450) 10^3/ul MPV (7.4-10.4) um3 Neut % (Auto) (38-83) % Lymph % (Auto) (25-47) % [place] % (Auto) (1-9) % Eos % (Auto) (0-6) % Baso % (Auto) (0-2) % Absolute Neuts (auto) (1.5-7.7) 10^3/ul Absolute Lymphs (auto) (1.0-4.8) 10^3/ul Absolute Monos (auto) (0-0.8) 10^3/ul Absolute Eos (auto) (0-0.6) 10^3/ul Absolute Basos (auto) (0-0.2) 10^3/ul Absolute Nucleated RBC 10^3/ul Nucleated RBC % INR (Anticoag Therapy) 0.98 (0.89-1.11) Sodium (133-145) mmol/L Potassium (3.5-5.0) mmol/L Chloride (101-111) mmol/L Carbon Dioxide (22-32) mmol/L Anion Gap (2-11) mmol/L BUN (6-24) mg/dL Creatinine (0.67-1.17) mg/dL Est GFR ( Amer) (>60) Est GFR (Non-Af Amer) (>60) BUN/Creatinine Ratio (8-20) Glucose (70-100) mg/dL Lactic Acid 4.4 H* (0.5-2.0) mmol/L Calcium (8.6-10.3) mg/dL Total Bilirubin (0.2-1.0) mg/dL AST (13-39) U/L ALT (7-52) U/L Alkaline Phosphatase (34-104) U/L Ammonia (16-53) mol/L Troponin I (<0.04) ng/mL Total Protein (6.4-8.9) g/dL Albumin (3.2-5.2) g/dL Globulin (2-4) g/dL Albumin/Globulin Ratio (1-3) Salicylates Acetaminophen Serum Alcohol Microbiology and Other Data: Microbiology 05/04/16 05:15 Nasal Screen MRSA (PCR)(FRANK) - Final Nasal Mrsa Negative Assess/Plan/Problems-Billing Mr Villela is a 55 yo M who has a 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 - Patient Problems (1) Facial droop Current Visit: Yes Status: Acute Code(s): R29.810 - FACIAL WEAKNESS SNOMED Code(s): 74816204 Comment: Unclear how acute this is. The patient has not noticed it before. ? TIA- CT brain on admission negative. Will get CTA head/neck to eval for stenosis. Start ASA 81mg and check lipid profile. If negative CTA can go home as the rest of the workup has been completed. (2) Accidental heroin overdose Current Visit: Yes Status: Acute Code(s): T40.1X1A - POISONING BY HEROIN, ACCIDENTAL (UNINTENTIONAL), INIT ENCNTR SNOMED Code(s): 836451615 Comment: The patient responded to narcan and his mental status is baseline. (3) Polysubstance abuse Current Visit: Yes Status: Acute Code(s): F19.10 - OTHER PSYCHOACTIVE SUBSTANCE ABUSE, UNCOMPLICATED SNOMED Code(s): 159931430 Comment: The patient has met with social work and been given information on community resources. (4) Elevated troponin Current Visit: Yes Status: Acute Code(s): R74.8 - ABNORMAL LEVELS OF OTHER SERUM ENZYMES SNOMED Code(s): 446889322 Comment: Likely demand ischemia related to unresponsive episode-? hypoxic at that time. Echo showed a normal EF and no abnormal wall motion. Will start ASA 81mg daily and ask for outpatient stress test. (5) COPD (chronic obstructive pulmonary disease) Current Visit: Yes Status: Acute Code(s): J44.9 - CHRONIC OBSTRUCTIVE PULMONARY DISEASE, UNSPECIFIED SNOMED Code(s): 82223000 Comment: No signs of exacerbation at this time. (6) DVT prophylaxis Current Visit: Yes Status: Acute Code(s): MFT6444 - SNOMED Code(s): 901910534 Comment: SQ heparin (7) Full code status Current Visit: Yes Status: Acute Code(s): Z78.9 - OTHER SPECIFIED HEALTH STATUS SNOMED Code(s): 922419892
[2016-05-05] MEDS ORDERED: Iohexol 350* (CONTRAST) 500 ML MDV IV ONE (13:44)
[2016-05-05] MEDS: Aspirin Low Dose CHEW TAB* 81 MG PO SCH (13:52)
[2016-05-05 13:58] LABS: HDL Cholesterol 30.5 mg/dL
[2016-05-05] MEDS ORDERED: amLODIPine TAB* 5 MG ONE (15:31)
[2016-05-05] MEDS: amLODIPine TAB* 5 MG PO SCH (15:36)
[2016-05-05] MEDS ORDERED: amLODIPine TAB* 5 MG PO SCH (16:00)
--- NOTE | 2016-05-05 16:17 | RAD ---
INDICATION: Right facial droop evaluate for stenosis. COMPARISON: Correlation is made with a prior CT angiogram of the head and neck from December 09, 2015. Correlation is also made with a prior CT of the brain from May 04, 2016. TECHNIQUE: A CT angiogram of the head and neck was performed following intravenous injection of 80 ml of Omnipaque 350 nonionic contrast. Contiguous axial sections were obtained from the thoracic inlet through the skull vertex. Images were reconstructed in the coronal and sagittal planes and in a 3-D volume rendered format. The distal cervical internal carotid artery diameter is used as the denominator for stenosis measurement. FINDINGS: RIGHT CAROTID: The common and internal carotid arteries appear patent without evidence for hemodynamically significant stenosis. LEFT CAROTID: The common and internal carotid arteries appear patent without evidence for hemodynamically significant stenosis. In the distal left internal carotid artery at the skull base there is a sacculation in the artery which may represent a small saccular aneurysm or ulcerated plaque. This appears unchanged from the prior study. VERTEBRALS: The vertebral arteries appear patent. CTA BRAIN: The internal carotid, anterior and middle cerebral arteries appear patent without evidence for high-grade stenosis or occlusion. The vertebral, basilar and posterior cerebral arteries appear patent without evidence for high-grade stenosis or occlusion. No aneurysm or vascular malformation is seen. No areas of hypoperfusion are seen. There is moderate to severe emphysematous change visualized at the lung apices. There is pleural thickening or pleural effusion on the left side which appears unchanged. No significant enlarged lymph nodes are seen within the neck. The thyroid, parotid and submandibular glands appear to be within normal limits. The patient is status post anterior cervical fusion at the C5-C7 levels. IMPRESSION: 1. NO EVIDENCE FOR CAROTID STENOSIS OR LARGE VESSEL INTRACEREBRAL THROMBUS. 2. FOCAL AREA OF SACCULATION IN THE DISTAL LEFT INTERNAL CAROTID ARTERY AT THE LEVEL OF THE SKULL BASE POSSIBLY REPRESENTING A SMALL SACCULAR ANEURYSM OR AREA OF ULCERATED PLAQUE. THIS IS UNCHANGED FROM THE PRIOR STUDY. CPT II Codes: 3100F
[2016-05-05] MEDS: Lisinopril TAB* 5 MG PO SCH (18:13)
[2016-05-06] MEDS: Heparin VIAL(*) 5000 UNITS/ML VIAL (FIVE THOUSAND) SUBCUT SCH ×2 (05:44→13:19)
[2016-05-06] MEDS: Aspirin Low Dose CHEW TAB* 81 MG PO SCH (08:40)
[2016-05-06] MEDS: amLODIPine TAB* 5 MG PO SCH (08:41)
[2016-05-06] MEDS: Lisinopril TAB* 5 MG PO SCH (08:41)
[2016-05-06] MEDS: Mometasone/Formoter 200/5 MDI INH SCH (09:27)
[2016-05-06] MEDS ORDERED: Lisinopril TAB* 5 MG PO ONE (09:31)
[2016-05-06] MEDS ORDERED: Lisinopril TAB* 5 MG ONE (09:38)
[2016-05-06 11:40] VITALS: BP 162/100
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
--- NOTE | 2016-05-08 08:39 | DS ---
DISCHARGE SUMMARY: DATE OF ADMISSION: 05/04/16 DATE OF DISCHARGE: 05/06/16 PRIMARY CARE PROVIDER: To be established. PRINCIPAL DIAGNOSES: 1. Unintentional heroin overdose. 2. Elevated troponin - likely demand ischemia. 3. Possible TIA with right facial droop. 4. Hypertension. DISCHARGE MEDICATIONS: 1. Aspirin 81 mg p.o. daily. 2. Zestoretic one tab p.o. daily. HOSPITAL COURSE: Mr. Villela is a 55-year-old male who was brought to the emergency room on 05/04/16 after being found unresponsive in his car, though responded to Narcan via ambulance. The patient was seen in the emergency room and admitted for evaluation of his unintentional heroin overdose. Once the patient was awakened, he was able to state that he had snorted heroin prior to driving. Additionally, on admission, the patient was found to have an elevated troponin of 0.5. This trended up to 0.14 and subsequently to 0.41, then back down. It was felt that his elevated troponin likely represents demand ischemia as the patient has normal EF and no significant wall motion abnormalities on his echocardiogram. The patient will need an outpatient stress test to evaluate for coronary artery disease. During the course of the hospitalization, it was also noted that the patient had a right facial droop. The patient, after he looked in the mirror the day after I noticed this, stated that this was different than his baseline. The patient had already been monitored on telemetry without any significant arrhythmias. He had already undergone echocardiogram, and CT of the brain without contrast did not reveal any acute findings. Therefore, he underwent CTA of the head and neck. This revealed no evidence for carotid stenosis or large vessel intracranial thrombus. There is a focal area of sacculation in the distal left internal carotid artery at the level of the skull base, possibly representing a small saccular aneurysm or area of ulcerated plaque. This was felt to be unchanged from the prior study. I then received a phone call from Dr. 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 It was felt that there was no risk of rupture, but could serve as a nidus for emboli. No thrombus was noted at the time of the imaging study. The dissection was no longer visualized. The patient was started on aspirin 81 mg p.o. daily for the possible TIA and elevated troponin. The patient did have a lipid profile obtained that was quite favorable. His blood pressure was noted to be markedly elevated and quite difficult to control. The patient was started on both amlodipine and lisinopril. When going to discharge the patient, it became clear that he did not have prescription drug insurance coverage. Because of this, the decision was made to change from amlodipine and lisinopril to hydrochlorothiazide and lisinopril, which is on the [employer] $4.00 list. I believe that the patient is going to need further management of his blood pressure. The patient is agreeable to being set up with a primary care provider, and this will be arranged. The patient has been instructed to return to the emergency room if he has any sudden chest pain, neurologic symptoms, or any other concerning findings. FOLLOWUP CONCERNS: The patient is being discharged home today, 05/06/16. ACTIVITY LEVEL: As tolerated. DIET: Regular. CONDITION ON DISCHARGE: Stable. TIME SPENT: Thirty-five minutes were spent discharging this patient. [id number]/[facility] #: [id number] MTDD
== END 2016-05-06 15:30 | disposition home or self-care (01) | DRG 917 ==
LOC: ED 02:57 → MEDTELE 04:44 → OBSVTOIN 05-05 13:00
PROVIDERS: ADMIT Hospitalist; ATTEND Hospitalist
DX: T40.1X1A Poisoning by heroin, accidental (unintentional), initial encounter (principal); P22.0 Respiratory distress syndrome of newborn; R65.11 Systemic inflammatory response syndrome (SIRS) of non-infectious origin with acute organ dysfunction; N17.9 Acute kidney failure, unspecified; I24.8 Other forms of acute ischemic heart disease; G45.9 Transient cerebral ischemic attack, unspecified; F11.188 Opioid abuse with other opioid-induced disorder; F12.10 Cannabis abuse, uncomplicated; Y92.414 Local residential or business street as the place of occurrence of the external cause; R74.8 Abnormal levels of other serum enzymes; F17.210 Nicotine dependence, cigarettes, uncomplicated; J44.9 Chronic obstructive pulmonary disease, unspecified; I10 Essential (primary) hypertension; M54.5 Low back pain; R29.810 Facial weakness; Z88.5 Allergy status to narcotic agent
CPT/HCPCS: 36415; 70450; 70496; 70498; 71010; 80048; 80053; 80061; 80307; 80320; 80329; 81003; 81015; 82140; 82375; 83605; 84443; 84484; 85025; 85027; 85610; 87040; 87641; 93005; 93306; 94640; 94760; 99406; A9270-GY; G0378; G0480; J1644; J2405; J2543; J3370; Q9967

== ENCOUNTER 2016-06-03 13:32 | Emergency (ER) | payer MEDICARE ==
[2016-06-03] MEDS ORDERED: Lisinopril TAB* 10 MG PO SCH (15:00)
[2016-06-03] MEDS ORDERED: Lisinopril/HCTZ 20/25(NF) TAB PO SCH (15:00)
[2016-06-03] MEDS ORDERED: Hydrochlorothiazide TAB* 25 MG PO SCH (15:00)
[2016-06-03 16:42] VITALS: BP 143/97
--- NOTE | 2016-06-03 16:52 | ED ---
IVidal,Anshu, scribed for Jordan Ross MD on 06/03/16 at 1438 . Hypertension - HPI Summary HPI Summary: This 55 y/o male presents to ED when he measured his blood pressure this afternoon at his friend's house this morning. Pt reports blood pressure read 130s this morning. Blood pressure of 182/114 is noted at time of triage. Pt reports mild lightheaded dizziness that started since 2-3 days ago and chronic CORBETT, but denies any SOB, CP, abd pain, or calf pain/swelling. Per EMR, PMHx include emphysema, left PTX, and chronic back pain RA. - History of Current Complaint Chief Complaint: EDHypertension Stated Complaint: HIGH BLOOD PRESSURE Time Seen by Provider: 06/03/16 14:22 Hx Obtained From: Patient Onset/Duration: Started Hours Ago Timing: Constant Aggravating Factor(s): Nothing Alleviating Factor(s): Nothing Associated Signs & Symptoms: Negative - Allergies/Home Medications Allergies/Adverse Reactions: Allergies Allergy/AdvReac Type Severity Reaction Status Date / Time Codeine Allergy Unknown Vomiting Verified 06/03/16 13:36 PMH/Surg Hx/FS Hx/Imm Hx Endocrine/Hematology History: Denies: Hx Diabetes Cardiovascular History: Reports: Hx Hypertension Denies: Hx Angina, Hx Coronary Artery Disease, Hx Hypercholesterolemia, Hx Myocardial Infarction, Hx Peripheral Vascular Disease Respiratory History: Reports: Hx Chronic Obstructive Pulmonary Disease (COPD) - uses supplemental O2 at home, Other Respiratory Problems/Disorders - pneumothorax Denies: Hx Asthma, Hx Sleep Apnea History: Denies: Hx Renal Disease Musculoskeletal History: Reports: Hx Arthritis - BACK, Hx Back Problems Denies: Hx Osteoporosis Sensory History: Reports: Hx Contacts or Glasses Denies: Hx Cataracts, Hx Hearing Aid Opthamlomology History: Reports: Hx Contacts or Glasses Denies: Hx Cataracts Neurological History: Reports: Hx Headaches, Hx Migraine Psychiatric History: Denies: Hx Depression - Surgical History Surgery Procedure, Year, and Place: R THORACOTOMY 2009. NECK SURGERY 2000. STEEL PLATE RIGHT HAND. VARICOSE VEINS R LEG. HERNIA REPAIR IN CHILDHOOD. TONSILECTOMY. APPENDECTOMY Hx Anesthesia Reactions: No - Immunization History Date of Tetanus Vaccine: 2006 Date of Influenza Vaccine: 2012 Infectious Disease History: No Infectious Disease History: Reports: Hx Hepatitis Denies: Traveled Outside the [place] in Last 30 Days - Family History Known Family History: Positive: Cardiac Disease - Brother [place], Diabetes - Brother Negative: Hypertension - Social History Alcohol Use: Rare Substance Use Type: Reports: Cocaine, Heroin, Marijuana Substance Use Comment - Amount & Last Used: Pt reports occasional use of substances listed above. Hx Tobacco Use: Yes Smoking Status (MU): Current Every Day Smoker Amount Used/How Often: 1/2 PACK PER DAY Have You Smoked in the Last Year: Yes Review of Systems Negative: Fever Negative: Chest Pain Negative: Shortness Of Breath Negative: Other - calf pain Neurological: Other - positive for dizziness Negative: Anxious, Depressed All Other Systems Reviewed And Are Negative: Yes Physical Exam Triage Information Reviewed: Yes Vital Signs On Initial Exam: Initial Vitals Temp Pulse Resp BP Pulse Ox 99.0 F 96 18 182/114 97 06/03/16 13:33 06/03/16 13:33 06/03/16 13:33 06/03/16 13:33 06/03/16 13:33 Vital Signs Reviewed: Yes Appearance: Positive: Well-Appearing, No Pain Distress Skin: Positive: Warm, Skin Color Reflects Adequate Perfusion, Dry Head/Face: Positive: Normal Head/Face Inspection Eyes: Positive: EOMI, JENNIFER Neck: Positive: Supple, Nontender Respiratory/Lung Sounds: Positive: Clear to Auscultation, Breath Sounds Present Cardiovascular: Positive: RRR, Pulses are Symmetrical in both Upper and Lower Extremities Abdomen Description: Positive: Nontender, No Organomegaly, Soft Musculoskeletal: Positive: Strength/ROM Intact Neurological: Positive: Sensory/Motor Intact, Alert, Oriented to Person Place, Time Psychiatric: Positive: Affect/Mood Appropriate AVPU Assessment: Alert Diagnostics - Vital Signs Vital Signs Temp Pulse Resp BP Pulse Ox 06/03/16 13:33 99.0 F 96 18 182/114 97 - Laboratory Lab Statement: Any lab studies that have been ordered have been reviewed, and results considered in the medical decision making process. Hypertension Course/Dx - Course Course Of Treatment: NO CRITICAL CERE TIME Assessment/Plan: DISCUSSED GETTING LABS ETC IN ED WITH PATIENT. BECAUSE HE HAD EVERYTHING CHECKED LAST MONTH, HE DECLINED. BP DECREASED IN ED TO 140/97 S/P BP MED. BP SCRIPT SENT TO PHARMACY. DISCHARGE HOME STABLE. - Diagnoses Provider Diagnoses: HYPERTENSION, DIZZINESS Discharge - Discharge Plan Condition: Stable Disposition: HOME Prescriptions: Lisinopril/HCTZ 20/25(NF) [Zestoretic (NF)] 1 tab PO DAILY #30 tab Patient Education Materials: Hypertension (ED), Dizziness (ED) Referrals: [facility] PHYSICIAN REFERRAL [Outside] No Primary Care Phys,NOPCP [Primary Care Provider] - Additional Instructions: FOLLOW UP WITH YOUR DOCTOR. RETURN TO THE EMERGENCY DEPARTMENT FOR ANY WORSENING OF YOUR CONDITION OR QUESTIONS OR CONCERNS. The documentation as recorded by the Vidal vilchis Soohyun accurately reflects the service I personally performed and the decisions made by me, Jordan Ross MD.
== END 2016-06-03 16:41 | disposition home or self-care (01) ==
LOC: ED 13:32
DX: I10 Essential (primary) hypertension (principal); R42 Dizziness and giddiness; Z87.891 Personal history of nicotine dependence
CPT/HCPCS: 99282; A9270-GY

== ENCOUNTER 2018-05-20 10:00 | Emergency (ER) | payer MEDICARE ==
[2018-05-20] MEDS ORDERED: Tetan/Diph/Pertus SYR(Tdap)* 0.5 ML SYR(BOOSTRIX) use SYR IM ONE (10:49)
[2018-05-20 11:04] VITALS: BP 147/118
--- NOTE | 2018-05-20 11:06 | UC ---
UC General HPI - HPI Summary HPI Summary: bitten by a friends indoor cat on L forearm/thumb 5 days ago. the forearm area started to become red, sore and swollen over the past couple of days. no fever or joint pain. the cat had gotten outside and our pt helped to catch it when he got bitten. cat is utd on rabies and was fine before and after the incident. pt washed the site immediately after being bitten. - History of Current Complaint Stated Complaint: CAT BITE ON ARM Time Seen by Provider: 05/20/18 10:48 Hx Obtained From: Patient Onset/Duration: Gradual Onset Timing: Constant Associated Signs & Symptoms: Positive: Fever - Allergy/Home Medications Allergies/Adverse Reactions: Allergies Allergy/AdvReac Type Severity Reaction Status Date / Time codeine Allergy Unknown Vomiting Verified 05/20/18 10:46 PMH/Surg Hx/FS Hx/Imm Hx Cardiovascular History: Hypertension - Surgical History Surgical History: Unable to Obtain/Confirm Surgery Procedure, Year, and Place: R THORACOTOMY 2008. NECK SURGERY 1999. STEEL PLATE RIGHT HAND. VARICOSE VEINS R LEG. HERNIA REPAIR IN CHILDHOOD. TONSILECTOMY. APPENDECTOMY - Family History Known Family History: Positive: Cardiac Disease - Brother [place], Diabetes - Brother Negative: Hypertension - Social History Alcohol Use: Rare Substance Use Type: Cocaine, Heroin, Marijuana Substance Use Comment - Amount & Last Used: Pt reports occasional use of substances listed above. Smoking Status (MU): Current Every Day Smoker Amount Used/How Often: 1/2 PACK PER DAY Have You Smoked in the Last Year: Yes - Immunization History Most Recent Influenza Vaccination: Indicated Most Recent Tetanus Shot: Unknown Most Recent Pneumonia Vaccination: Indicated Review of Systems All Other Systems Reviewed And Are Negative: Yes Constitutional: Negative: Fever Skin: Positive: Rash Motor: Negative: Weakness Musculoskeletal: Negative: Arthralgia Physical Exam Triage Information Reviewed: Yes Appearance: Well-Appearing Vital Signs Reviewed: Yes Eyes: Positive: Conjunctiva Clear ENT: Positive: Normal ENT inspection Neck: Positive: Supple Respiratory: Positive: Lungs clear, Normal breath sounds, No respiratory distress Cardiovascular: Positive: RRR, No Murmur Abdomen Description: Positive: Nontender, No Organomegaly, Soft Bowel Sounds: Positive: Present Musculoskeletal: Positive: ROM Intact Neurological: Positive: Alert Psychological: Positive: Age Appropriate Behavior Skin Exam: Normal Skin: Positive: Rashes - L volar-distal forearm with mild swelling, erythema and warmth. Scabbing bites gatica dorsal base thumb and volar distal forearm noted. LUE/hand has full s/v/m function. No streaking, joint pain or adrenoapthy. Course/Dx - Course Course Of Treatment: PT HAS HX HTN. RAN OUT OF HIS BP MEDICATION 3 DAYS AGO. HE IS A PT OF THE [facility] AND NEEDS A RIDE THERE TO GET HIS REFILL. DAUGHTER AT BEDSIDE WILL TAKE IN 2 DAYS THUS I WILL WRITE A 1 MONTH REFILL HERE. NO S/S' HYPERTENSIVE URGENCY OR EMERGENCY. - Diagnoses Provider Diagnosis: Cat bite, Cellulitis Discharge - Sign-Out/Discharge Documenting (check all that apply): Patient Departure All imaging exams completed and their final reports reviewed: No Studies - Discharge Plan Condition: Stable Disposition: HOME Prescriptions: Amoxicillin/Clavulanate TAB* [Augmentin TAB 875*] 875 mg PO BID 10 Days #20 tab Lisinopril/HCTZ 20/25(NF) [Zestoretic 20/25(NF)] 1 tab PO DAILY #30 tab Patient Education Materials: Animal Bite (ED), Cellulitis (DC) Referrals: No Primary Care Phys,NOPCP [Primary Care Provider] - Additional Instructions: FOLLOW UP WITH THE [facility] IN 2 DAYS FOR A RECHECK. GO TO THE ER FOR ANY WORSENING. - Billing Disposition and Condition Condition: STABLE Disposition: Home - Attestation Statements Provider Attestation: I was available for consult. This patient was seen by the HUMBERTO. The patient was not presented to, seen by, or examined by me. -Sandra
== END 2018-05-20 11:24 | disposition home or self-care (01) ==
LOC: UCCORT 10:00
DX: S51.852A Open bite of left forearm, initial encounter (principal); S61.052A Open bite of left thumb without damage to nail, initial encounter; F17.210 Nicotine dependence, cigarettes, uncomplicated; I10 Essential (primary) hypertension; Z88.5 Allergy status to narcotic agent; W55.01XA Bitten by cat, initial encounter; Y92.9 Unspecified place or not applicable
CPT/HCPCS: 90471; 90715; 99212; G0463

== ENCOUNTER 2019-01-07 13:45 | Emergency (ER) | payer MEDICARE ==
--- NOTE | 2019-01-07 14:07 | UC ---
Laceration HPI - HPI Summary HPI Summary: 58 yo male presents with LEFT hand laceration. 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 He sustained a laceration to his left hand. Bandaged the area and came to . He is right hand dominant. Last tetanus was earlier in 2019. Denies numbness or tingling. - History Of Current Complaint Stated Complaint: HAND LACERATION Time Seen by Provider: 01/07/19 14:06 Hx Obtained From: Patient Laceration Location: Hand Mechanism Of Injury: Sharp Trauma Onset/Duration: Sudden Onset Severity: Moderate Pain Intensity: 4 Pain Scale Used: 0-10 Numeric - Allergies/Home Medications Allergies/Adverse Reactions: Allergies Allergy/AdvReac Type Severity Reaction Status Date / Time codeine Allergy Unknown Vomiting Verified 01/07/19 13:59 PMH/Surg Hx/FS Hx/Imm Hx - Additional Past Medical History Additional PMH: Hepatitis C Cardiovascular History: Hypertension Respiratory History: COPD - Surgical History Surgical History: Unable to Obtain/Confirm Surgery Procedure, Year, and Place: R THORACOTOMY 2008. NECK SURGERY 1999. STEEL PLATE RIGHT HAND. VARICOSE VEINS R LEG. HERNIA REPAIR IN CHILDHOOD. TONSILECTOMY. APPENDECTOMY - Family History Known Family History: Positive: Cardiac Disease - Brother PR, Diabetes - Brother Negative: Hypertension - Social History Lives: With Family Alcohol Use: Rare Substance Use Type: Cocaine, Heroin, Marijuana Substance Use Comment - Amount & Last Used: Pt reports occasional use of substances listed above. Smoking Status (MU): Current Every Day Smoker Amount Used/How Often: 1/2 PACK PER DAY Have You Smoked in the Last Year: Yes - Immunization History Most Recent Influenza Vaccination: Indicated Most Recent Tetanus Shot: Unknown Most Recent Pneumonia Vaccination: Indicated Review of Systems All Other Systems Reviewed And Are Negative: No Constitutional: Positive: Negative Skin: Positive: Other - Hand laceration Respiratory: Positive: Negative Cardiovascular: Positive: Negative Neurovascular: Positive: Negative Musculoskeletal: Positive: Negative Neurological: Positive: Negative Psychological: Positive: Negative Physical Exam - Summary Physical Exam Summary: GENERAL: NAD. WDWN. No pain distress. SKIN: LEFT HAND: Overlying the 4th MCP there is a 1.5cm crescent shaped laceration partially through the dermis. Mild active bleeding. No bony or tendon involvement NECK: Supple. Nontender. No lymphadenopathy. CHEST: No accessory muscle use. Breathing comfortably and in no distress. CV: Pulses intact. Cap refill <2seconds MSK: FROM and intact strength 4th MCP, PIP, and DIP NEURO: Alert. PSYCH: Age appropriate behavior. Triage Information Reviewed: Yes Vital Signs: Vital Signs: Temp Pulse Resp BP Pulse Ox 97.6 F 104 20 167/118 94 01/07/19 14:00 01/07/19 14:00 01/07/19 14:00 01/07/19 14:00 01/07/19 14:00 Vital Signs Reviewed: Yes Laceration Repair - Laceration Repair 1 Description: Irregular Laceration Size After Repair: Length (cm) - 1.0 Modified For Repair: No Type Injection: Local Anesthesia Used: 2.0% Lido Irrigation With Pressure Irrigation Device: Yes Closure Material: Sutures - #4 Closure Method: Single Layer Suture Of: Skin Suture Type: Prolene - 4-0 Laceration Course/Dx - Course/Dx Course Of Treatment: BP elevated today. Pt has a history of HTN and frequently runs out of his BP meds without getting refills. He is requesting a refill today. No headaches, dizziness, vision changes, n/v, SOB, or chest pain The procedure was explained to the pt and all questions were answered. A time out was performed, witnessed, and signed. The area was irrigated with 200mL sterile saline. 2mL of 2% lidocaine without epi was administered and good anesthetization was achieved. In the usual sterile fashion, FOUR 4-0 prolene interrupted sutures were placed. Homeostasis achieved. The wound was bandaged with telfa . Pt tolerated procedure well. - Diagnosis Provider Diagnosis: Hand laceration, HTN (hypertension) Discharge ED - Sign-Out/Discharge Documenting (check all that apply): Patient Departure All imaging exams completed and their final reports reviewed: No Studies - Discharge Plan Condition: Stable Disposition: HOME Prescriptions: Lisinopril/HCTZ 20/25(NF) [Zestoretic 20/25(NF)] 1 tab PO DAILY #30 tab Patient Education Materials: Care For Your Stitches (ED), Laceration (ED) Referrals: No Primary Care Phys,NOPCP [Primary Care Provider] - [facility] [Outside] - As Soon As Possible Additional Instructions: If you develop a fever, shortness of breath, chest pain, new or worsening symptoms - please call your PCP or go to the ED immediately. Your blood pressure was high at todays visit. Please see your primary provider within 4 weeks for recheck and re-evaluation. 1) Please keep the area bandage, clean, dry, and intact for the next 24- 48hours. Then change the bandage daily until sutures are removed. 2) If you develop a fever, colored or thick discharge, increased pain or swelling - please call your PCP or return for a wound check. 3) Please return in 8-10 days to have your FOUR sutures removed. - Billing Disposition and Condition Condition: STABLE Disposition: Home
[2019-01-07 14:10] VITALS: BP 167/118
[2019-01-07] MEDS ORDERED: Lidocaine 2% PF * 5 ML VIAL INJ ONE (14:22)
== END 2019-01-07 14:54 | disposition home or self-care (01) ==
LOC: UCEAST 13:45
DX: S61.412A Laceration without foreign body of left hand, initial encounter (principal); W26.8XXA Contact with other sharp object(s), not elsewhere classified, initial encounter; Y92.009 Unspecified place in unspecified non-institutional (private) residence as the place of occurrence of the external cause; I10 Essential (primary) hypertension; Z88.5 Allergy status to narcotic agent; F17.210 Nicotine dependence, cigarettes, uncomplicated
CPT/HCPCS: 12001; 99211; G0463

== ENCOUNTER 2023-06-10 19:45 | Inpatient (IN) ==
[2023-06-10 20:54] LABS: ABS Lymphocytes 0.8 10^3/uL (1.0-4.8); ABS Monocytes 0.7 10^3/uL (0.0-1.1); ABS Neutrophils 5.9 10^3/uL (1.5-7.6); ABS Nucleated RBC 0.01 10^3/ul; Eosinophil % 0.6 %; Hematocrit 44.8 % (38-53); Hemoglobin 15.3 g/dL (13.2-16.3); Lymphocyte % 10.7 %; Mean Corpuscular Hemoglobin 32.8 pg (27-33); Mean Corpuscular Hgb Conc 34.1 g/dL (31-36); Mean Corpuscular Volume 96.2 fL (80-97); Mean Platelet Volume 8.6 fL (7.5-11.2); Nucleated Red Blood Cells % 0.1 %/100WBC (0.0-0.8); Platelet Count 168 10^3/uL (150-450); Red Blood Count 4.65 10^6/uL (4.06-5.63); Red Cell Distribution Width 14.7 % (12-17); White Blood Count 7.5 10^3/uL (3.6-10.2)
[2023-06-10 21:12] LABS: INR 1.3 (0.83-1.13)
[2023-06-10 21:22] LABS: Albumin/Globulin Ratio 1.5 (1-3); Calcium 8.9 mg/dL (8.6-10.3); Creatinine, Serum 1.17 mg/dL (0.67-1.17); Globulin 2.6 g/dL (2-4); Magnesium 1.8 mg/dL (1.9-2.7); Potassium 4.5 mmol/L (3.5-5.0); Total Bilirubin 0.9 mg/dL (0.2-1.0); Total Protein 6.6 g/dL (6.4-8.9)
[2023-06-10] MEDS: Iohexol 350 (CONTRAST) 500 ML MDV IV ONE (22:10)
[2023-06-10] MEDS: methylPREDNISolone SOD SUCC 125 mg 2 ML VIAL IV ONE (23:44)
[2023-06-10] MEDS: Albuterol/Ipratropium NEB.SOL (2.5/0.5 MG) 3 ML NEB.SOLN INH ONE (23:44)
[2023-06-11 00:48] LABS: High Sensitivity Troponin 1 Hr 117 pg/mL (<20)
[2023-06-11] MEDS: cefTRIAXone 1 gm/50 mL D5W 1 GM/50 ML BAG IV SCH (02:28)
[2023-06-11] MEDS: Furosemide 20 mg/2 ml IV VIAL IV SLOW PU ONE (02:29)
[2023-06-11] MEDS: Enoxaparin 40 MG/0.4 ML SYR SUBCUT SCH (02:31)
[2023-06-11] MEDS ORDERED: Nicotine Lozenge mini 4 MG LOZNG.MINI MT PRN (02:56)
[2023-06-11] MEDS ORDERED: methylPREDNISolone SOD SUCC 40 mg/ml 1 ml VIAL IV SCH (03:00)
[2023-06-11] MEDS: Azithromycin 500 mg/250 ml NS 500 MG/250 ML BAG IVPB SCH (03:40)
[2023-06-11] MEDS: Magnesium Sulfate 2 gm BAG 2 GM/50 ML BAG IVPB ONE (03:41)
[2023-06-11] MEDS: methylPREDNISolone SOD SUCC 40 mg/ml 1 ml VIAL IV SCH (05:05)
[2023-06-11] MEDS: Albuterol/Ipratropium NEB.SOL (2.5/0.5 MG) 3 ML NEB.SOLN INH SCH ×2 (09:32→11:48)
[2023-06-11] MEDS: Furosemide 40 mg/4 ml IV VIAL IV ONE (18:46)
[2023-06-12] MEDS: cefTRIAXone 1 gm/50 mL D5W 1 GM/50 ML BAG IV SCH (02:02)
[2023-06-12] MEDS: Azithromycin 500 mg/250 ml NS 500 MG/250 ML BAG IVPB SCH (03:07)
[2023-06-12 06:33] LABS: ABS Lymphocytes 0.5 10^3/uL (1.0-4.8); ABS Monocytes 0.5 10^3/uL (0.0-1.1); ABS Neutrophils 6.8 10^3/uL (1.5-7.6); Hematocrit 40.1 % (38-53); Hemoglobin 13.5 g/dL (13.2-16.3); Lymphocyte % 6.6 %; Mean Corpuscular Hemoglobin 32.3 pg (27-33); Mean Corpuscular Hgb Conc 33.6 g/dL (31-36); Mean Corpuscular Volume 96.1 fL (80-97); Mean Platelet Volume 9.4 fL (7.5-11.2); Platelet Count 141 10^3/uL (150-450); Red Blood Count 4.18 10^6/uL (4.06-5.63); Red Cell Distribution Width 14.6 % (12-17); White Blood Count 7.8 10^3/uL (3.6-10.2)
[2023-06-12 07:22] LABS: Calcium 8.3 mg/dL (8.6-10.3); Creatinine, Serum 1.4 mg/dL (0.67-1.17); HDL Cholesterol 29.1 mg/dL; Magnesium 2.1 mg/dL (1.9-2.7); Potassium 4.9 mmol/L (3.5-5.0); eGFR CKD-EPI 56.5 (>60)
[2023-06-12 07:35] LABS: TSH Ultra Thyroid Stim Horm 0.71 mcIU/mL (0.34-5.60)
[2023-06-12] MEDS: Furosemide 40 mg/4 ml IV VIAL IV ONE (11:07)
[2023-06-13] MEDS: Calcium Carb (TUMS) 500 mg CHEW TAB PO PRN (04:32)
[2023-06-13] MEDS: Calcium Carb (TUMS) 500 mg CHEW TAB ONE (04:44)
[2023-06-13 07:01] LABS: ABS Lymphocytes 0.5 10^3/uL (1.0-4.8); ABS Monocytes 0.6 10^3/uL (0.0-1.1); ABS Neutrophils 8.7 10^3/uL (1.5-7.6); ABS Nucleated RBC 0.01 10^3/ul; Hematocrit 40.5 % (38-53); Hemoglobin 13.7 g/dL (13.2-16.3); Lymphocyte % 4.8 %; Mean Corpuscular Hemoglobin 32.6 pg (27-33); Mean Corpuscular Hgb Conc 33.7 g/dL (31-36); Mean Corpuscular Volume 96.7 fL (80-97); Mean Platelet Volume 9.1 fL (7.5-11.2); Nucleated Red Blood Cells % 0.1 %/100WBC (0.0-0.8); Platelet Count 145 10^3/uL (150-450); Red Blood Count 4.19 10^6/uL (4.06-5.63); Red Cell Distribution Width 14.5 % (12-17); White Blood Count 9.8 10^3/uL (3.6-10.2)
[2023-06-13 07:31] LABS: Calcium 8.9 mg/dL (8.6-10.3); Creatinine, Serum 1.4 mg/dL (0.67-1.17); Potassium 4.9 mmol/L (3.5-5.0); eGFR CKD-EPI 56.5 (>60)
[2023-06-13] MEDS: Furosemide 40 mg/4 ml IV VIAL IV ONE ×2 (09:08→17:21)
[2023-06-13] MEDS: methylPREDNISolone SOD SUCC 40 mg/ml 1 ml VIAL IV SCH (22:22)
[2023-06-13] MEDS: Al Hydrox/Mg Hydrox/Simet LIQ 30 ML UDC PO PRN (23:46)
[2023-06-14 07:30] LABS: Calcium 8.2 mg/dL (8.6-10.3); Creatinine, Serum 1.16 mg/dL (0.67-1.17); Magnesium 2.2 mg/dL (1.9-2.7); Potassium 4.6 mmol/L (3.5-5.0); eGFR CKD-EPI 70.8 (>60)
[2023-06-14] MEDS: Albuterol/Ipratropium NEB.SOL (2.5/0.5 MG) 3 ML NEB.SOLN INH SCH (07:39)
[2023-06-14] MEDS ORDERED: Lidocaine 1% MPF 5 ML VIAL ONE (09:59)
[2023-06-14] MEDS ORDERED: nitroGLYCERIN DRIP 25,000 MCG/250 ML BTL ONE (09:59)
[2023-06-14] MEDS ORDERED: Heparin 2 UNITS/ML 1000 mls 3,000 ML IV ONE (09:59)
[2023-06-14] MEDS ORDERED: niCARdipine 0.1MG/ML IVPREMIX 20 MG/200 ML BAG IV ONE (10:00)
[2023-06-14] MEDS ORDERED: Iohexol 350 (CONTRAST) 200 ML MDV IV ONE (10:00)
[2023-06-14] MEDS ORDERED: Flumazenil 0.5 mg/5 ml 0.1 MG/ML 5 ml VIAL IV PRN (10:01)
[2023-06-14] MEDS ORDERED: Naloxone 0.4 mg VIAL 0.4 mg/ml 1 ml VIAL IV PUSH PRN (10:01)
[2023-06-14] MEDS ORDERED: fentaNYL 100 mcg/2 ml 50 MCG/ML VIAL ONE (10:11)
[2023-06-14] MEDS ORDERED: Midazolam 5 mg/5 ml VIAL 1 mg/ml 5 ml VIAL (5 mg) ONE (10:11)
[2023-06-14] MEDS ORDERED: Heparin 1,000 UNIT/ML 10 ml (10,000 UNITS) CATHLAB/DIALYSIS ONE (10:11)
[2023-06-14] MEDS: Midazolam 10 mg/10 ml VIAL 1 mg/ml 10 ml VIAL (10 mg) IV SLOW PU ONE (11:16)
[2023-06-14] MEDS: fentaNYL 100 mcg/2 ml 50 MCG/ML VIAL IV SLOW PU ONE (11:16)
[2023-06-14] MEDS ORDERED: Furosemide 20 mg/2 ml IV VIAL ONE ×2 (11:17→11:18)
[2023-06-14] MEDS: Furosemide 20 mg/2 ml IV VIAL IV ONE (11:44)
[2023-06-14] MEDS: Levalbuterol 0.63MG/3ML NEB UNIT OF USE INH PRN (16:17)
[2023-06-15 07:03] LABS: ABS Lymphocytes 1.2 10^3/uL (1.0-4.8); ABS Monocytes 1.5 10^3/uL (0.0-1.1); ABS Neutrophils 7.6 10^3/uL (1.5-7.6); ABS Nucleated RBC 0.01 10^3/ul; Eosinophil % 0.1 %; Hemoglobin 14.8 g/dL (13.2-16.3); Lymphocyte % 11.9 %; Mean Corpuscular Hemoglobin 32.6 pg (27-33); Mean Corpuscular Hgb Conc 33.7 g/dL (31-36); Mean Corpuscular Volume 96.6 fL (80-97); Mean Platelet Volume 9.2 fL (7.5-11.2); Nucleated Red Blood Cells % 0.1 %/100WBC (0.0-0.8); Platelet Count 160 10^3/uL (150-450); Red Blood Count 4.55 10^6/uL (4.06-5.63); Red Cell Distribution Width 14.6 % (12-17); White Blood Count 10.4 10^3/uL (3.6-10.2)
[2023-06-15 07:30] LABS: Calcium 7.9 mg/dL (8.6-10.3); Creatinine, Serum 0.96 mg/dL (0.67-1.17); Magnesium 2.2 mg/dL (1.9-2.7); Potassium 4.7 mmol/L (3.5-5.0); eGFR CKD-EPI 88.8 (>60)
[2023-06-15] MEDS: methylPREDNISolone SOD SUCC 40 mg/ml 1 ml VIAL IV SCH (08:04)
[2023-06-15] MEDS: Furosemide 40 mg/4 ml IV VIAL ONE (08:37)
[2023-06-15] MEDS: Furosemide 40 mg/4 ml IV VIAL IV SLOW PU ONE (08:37)
[2023-06-17 09:46] LABS: Calcium 8.7 mg/dL (8.6-10.3); Creatinine, Serum 1.23 mg/dL (0.67-1.17); Potassium 5.1 mmol/L (3.5-5.0)
[2023-06-18 09:10] LABS: Hematocrit 47.4 % (38-53); Hemoglobin 15.8 g/dL (13.2-16.3); Mean Corpuscular Hemoglobin 32.4 pg (27-33); Mean Corpuscular Hgb Conc 33.3 g/dL (31-36); Mean Corpuscular Volume 97.2 fL (80-97); Platelet Count 189 10^3/uL (150-450); Red Blood Count 4.88 10^6/uL (4.06-5.63); Red Cell Distribution Width 14.6 % (12-17); White Blood Count 10.5 10^3/uL (3.6-10.2)
[2023-06-18 09:29] LABS: Calcium 8.5 mg/dL (8.6-10.3); Creatinine, Serum 1.18 mg/dL (0.67-1.17); Potassium 4.7 mmol/L (3.5-5.0); eGFR CKD-EPI 69.3 (>60)
[2023-06-18 18:39] VITALS: BP 128/84
== END 2023-06-18 18:15 | disposition home or self-care (01) | DRG 286 ==
LOC: ED 19:45 → EDHOLD 19:45 → SUATTDRO 06-11 00:58 → MEDTELE 06-11 19:59 → SUATTDRO 06-12 16:33
PROVIDERS: ADMIT Internal Medicine; ATTEND Internal Medicine